=== PATIENT | male | born 1985 | race Caucasian/White ===

== ENCOUNTER 2016-09-14 01:58 | Emergency (ER) | payer BC, OTHER ==
[2016-09-14 02:35] VITALS: BP 137/85; PULSE 76; TEMP 98.6; BMI 24.8
--- NOTE | 2016-09-14 02:49 | PDOC ---
History of Present Illness - General History Source: Patient Exam Limitations: No Limitations - History of Present Illness Initial Comments: 09/14/16 03:10 The patient is a 31 year old male, with no significant past medical history, who presents to the emergency department complaining of left sided chest discomfort that began approximately 2 hours ago. 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 He describes the discomfort as a slightly sharp pressure sensation to his chest. He rates his discomfort as a 3/10. The patient reports associated paresthesias in his left arm, left ankle, and left foot. The patient reports a similar episode 2 nights ago, however, he states his symptoms were not as severe. The patient denies any associated palpitations, diaphoresis, shortness of breath, or lower extremity edema. The patient reports he was diagnosed with gastroenteritis this past weekend. Today he reports nausea, but denies vomiting , diarrhea, or constipation. The patient denies any dysuria, hematuria, frequency, or urgency. The patient denies any fever, chills, cough, headache, dizziness, or lightheadedness. Allergies: None reported. Past Surgical History: Appendectomy Social History: Non-smoker. Previous history of ETOH use, and cocaine dependence with ETOH use. <Jass Jhaveri - Last Filed: 09/14/16 03:24> - General History Source: Patient <August Garcia - Last Filed: 09/14/16 04:12> - General Chief Complaint: Chest Pain Stated Complaint: CHEST TIGHTNESS,NUMBNESS,SOB Time Seen by Provider: 09/14/16 02:28 Past History <Jass Jhaveri - Last Filed: 09/14/16 03:24> - Past Medical History Anemia: No Asthma: No Cancer: No Cardiac Disorders: No CVA: No COPD: No CHF: No Dementia: No Diabetes: No GI Disorders: No Disorders: No HTN: No Hypercholesterolemia: No Kidney Stones: No Liver Disease: No Suicide Attempt (Hx): No Seizures: No Thyroid Disease: No - Surgical History Abdominal Surgery: No Appendectomy: Yes (age 17) Cardiac Surgery: No Cholecystectomy: No Lung Surgery: No Neurologic Surgery: No Orthopedic Surgery: No - Reproductive History Testicular Surgery: No - Psycho/Social/Smoking Cessation Hx Anxiety: No Suicidal Ideation: No Smoking History: Never smoked Have you smoked in the past 12 months: No Number of Cigarettes Smoked Daily: 0 Cigars Per Day: 0 Information on smoking cessation initiated: No 'Breaking Loose' booklet given: 07/05/15 Hx Alcohol Use: No Drug/Substance Use Hx: No Substance Use Type: Alcohol (1/2 pn of wiskey), Cocaine ($400-700 a day) Hx Substance Use Treatment: Yes (completed rehab. in [facility]) <August Garcia - Last Filed: 09/14/16 04:12> - Past Medical History Allergies/Adverse Reactions: Allergies Allergy/AdvReac Type Severity Reaction Status Date / Time No Known Allergies Allergy Verified 09/14/16 02:21 Home Medications: Ambulatory Orders NK [No Known Home Medication] 07/05/15 Review of Systems - Review of Systems Able to Perform ROS?: Yes Comments:: 09/14/16 03:07 CONSTITUTIONAL: Absent: fever, no chills, no fatigue EYES: Absent: visual changes ENT: Absent: ear pain, no sore throat CARDIOVASCULAR: Present: +chest discomfort Absent: syncope, palpitations, irregular heart rate, lightheadedness, peripheral edema RESPIRATORY: Absent: cough, no SOB GI: Present: +nausea Absent: abdominal pain, no vomiting, no constipation, no diarrhea GENITOURINARY: Absent: dysuria, no frequency, no hematuria MUSKULOSKELETAL: Absent: back pain, no arthralgia, no myalgia SKIN: Absent: rash NEUROLOGIC: Present: +left arm, +left ankle, and +left leg paresthesias Absent: headache, focal weakness, dizziness, unsteady gait, seizure, mental status changes, bladder or bowel incontinence <Jass Jhaveri - Last Filed: 09/14/16 03:24> *Physical Exam - Vital Signs Last Vital Signs Temp Pulse Resp BP Pulse Ox 98.6 F 76 14 137/85 97 09/14/16 02:23 09/14/16 02:23 09/14/16 02:23 09/14/16 02:23 09/14/16 02:23 - Physical Exam Comments: 09/14/16 03:06 GENERAL: Well-appearing, well-nourished. No apparent distress. HEENT: Normocephalic, atraumatic. PERRL, EOM intact. CARDIOVASCULAR: Normal S1, S2. Regular rate and rhythm. PULMONARY: Clear to auscultation bilaterally. ABDOMEN: Soft, non-distended, non-tender. EXTREMITIES: Normal ROM in all four extremities. No gross deformities. SKIN: Warm, dry. No rash NEUROLOGICAL: No focal neurological deficits. <Jass Jhaveri - Last Filed: 09/14/16 03:24> - Vital Signs Last Vital Signs Temp Pulse Resp BP Pulse Ox 98.6 F 76 14 137/85 97 09/14/16 02:23 09/14/16 02:23 09/14/16 02:23 09/14/16 02:23 09/14/16 02:23 <August Garcia - Last Filed: 09/14/16 04:12> Heart Score/ECG Review - ECG Impressions Comment:: 09/14/16 03:12 Vent. Rate: 88 bpm IMPRESSION: Normal sinus rhythm. <Jass Jhaveri - Last Filed: 09/14/16 03:24> ED Treatment Course - LABORATORY CBC & Chemistry Diagram: 09/14/16 03:00 09/14/16 03:00 <Jass Jhaveri - Last Filed: 09/14/16 03:24> - LABORATORY CBC & Chemistry Diagram: 09/14/16 03:00 09/14/16 03:00 <August Garcia - Last Filed: 09/14/16 04:12> Medical Decision Making - Medical Decision Making 09/14/16 04:11 Dr. Garcia: The scribe's documentation has been prepared under my direction and personally reviewed by me in its entirery. I confirm that the note above accurately reflects all work, treatment, procedures, and medical decision making performed by me. <August Garcia - Last Filed: 09/14/16 04:12> *DC/Admit/Observation/Transfer - Attestations Scribe Attestion: 09/14/16 03:06 Documentation prepared by Jass Jhaveri, acting as medical technologist chief for August Garcia DO. <Jass Jhaveri - Last Filed: 09/14/16 03:24> - Discharge Dispostion Admit: No <August Garcia - Last Filed: 09/14/16 04:12> Diagnosis at time of Disposition: Chest pain Qualifiers: Chest pain type: unspecified Qualified Code(s): R07.9 - Chest pain, unspecified - Discharge Dispostion Disposition: HOME Condition at time of disposition: Stable - Patient Instructions Printed Discharge Instructions: DI for Chest Pain
[2016-09-14 03:28] LABS: MEAN CELL VOLUME 91.5 fl (80-96); MEAN PLT VOLUME 6.9 fl (7.5-11.1); RDW 12.7 % (11.9-15.9)
[2016-09-14 03:41] LABS: INR 1.33 (0.82-1.09); PROTHROMBIN TIME (PATIENT) 14.7 SEC (9.98-11.88)
[2016-09-14 03:51] LABS: ALBUMIN 4.1 g/dl (3.4-5.0); ANION GAP 9 (8-16); BILIRUBIN,TOTAL 0.7 mg/dL (0.2-1.0); CALCIUM 8.7 mg/dL (8.5-10.1); CO2 26 mmol/L (21-32); CREATININE 0.9 mg/dL (0.7-1.3); GLUCOSE,RANDOM 81 mg/dL (74-106); MAGNESIUM 1.8 mg/dL (1.8-2.4); SGOT/AST 32 U/L (15-37); SGPT/ALT 55 U/L (12-78)
[2016-09-14 03:53] LABS: BASOPHIL 0.2 % (0-2.0); EOSINOPHIL 0.5 % (0-4.5); MCH 31.7 pg (25.7-33.7); MCHC 34.7 g/dl (32.0-35.9); NEUTROPHILS 68.3 % (42.8-82.8); PLATELET COUNT 246 K/MM3 (134-434); WHITE BLOOD COUNT 5.9 K/mm3 (4.0-10.0)
[2016-09-14 03:54] LABS: ALK PHOS 134 U/L (45-117); TROPONIN I < 0.02 ng/ml (0.00-0.05)
--- NOTE | 2016-09-14 16:05 | EKG ---
Test Reason : Blood Pressure : / mmHG Vent. Rate : 088 BPM Atrial Rate : 088 BPM P-R Int : 148 ms QRS Dur : 096 ms QT Int : 354 ms P-R-T Axes : 061 080 018 degrees QTc Int : 428 ms NORMAL SINUS RHYTHM NORMAL ECG NO PREVIOUS ECGS AVAILABLE Confirmed by PRICE BROWN MD ([id number]) on 09/14/2016 4:04:46 PM Referred By: Confirmed By:PRICE BROWN MD
== END 2016-09-14 04:18 | disposition home or self-care (01) ==
LOC: JER 01:58
DX: R07.9 Chest pain, unspecified (principal)
CPT/HCPCS: 36415; 80053; 82550; 83735; 84484; 85025; 85610; 93005; 93010; 99282-25